=== PATIENT | female | born 1995 | race Caucasian/White ===

== ENCOUNTER 2019-04-09 23:50 | Emergency (ER) | payer MEDICAID ==
[~2019-04-09] VITALS: Ht 172.7 cm; Wt 69.9 kg
[~2019-04-09 23:50] MED LIST: PREN-153 OR; PREN-96 PO
[2019-04-10 00:33] LABS: Basophils # (auto) 0 uL; Basophils % (auto) 0.1 % (0.0-2.0); Eosinophils # (auto) 0.2 uL; Eosinophils % (auto) 1.8 % (0.0-7.0); Hematocrit 42.3 % (36.0-46.0); Hemoglobin 14.5 g/dL (12.2-16.2); Lymphocytes # (auto) 1.6 uL; Lymphocytes % (auto) 16.4 % (10.0-50.0); Mean Corpuscular Hemoglobin 32.5 pg (28.0-32.0); Mean Corpuscular Hgb Conc. 34.2 g/dL (32.0-36.0); Monocytes # (auto) 0.4 uL; Monocytes % (auto) 4.6 % (0.0-12.0); Neutrophils # (auto) 7.5 uL; Neutrophils % (auto) 77.1 % (37.0-80.0); Platelet Count (auto) 242 10^3/uL (140-450); Red Blood Cells 4.45 10^6/uL (4.0-5.20); Red Cell Distribution Width 13.1 % (11.8-14.3); White Blood Cell 9.7 10^3/uL (4.4-10.8)
[2019-04-10 00:51] LABS: Albumin 3.4 g/dL (3.4-5.0); BUN/Creatinine Ratio 4.8; Calcium 8.7 mg/dL (8.5-10.1); Potassium 3.7 mmol/L (3.5-5.1)
[2019-04-10 00:54] LABS: Bilirubin, Total 0.3 mg/dL (0.2-1.0)
[2019-04-10 03:04] LABS: Urine Amorphous Crystal FEW /hpf (None Seen); Urine Bacteria FEW /hpf (None Seen); Urine Blood 1+ /uL (Negative); Urine Hyaline Cast FEW /lpf (0 - 2); Urine Mucus FEW (None Seen); Urine Specific Gravity 1.028 (1.001-1.035); Urine WBC 4 /hpf (0 - 5)
[2019-04-10] MEDS ORDERED: cefTRIAXone 1GM/50ML D5W 50 ML IV ONE (04:30)
[2019-04-10] MEDS ORDERED: metroNIDAZOLE 500MG/100ML 100 ML IV ONE (04:30)
[2019-04-10] MEDS ORDERED: SODIUM CHLORIDE 0.9% 1,000 ML IV ONE (04:30)
[2019-04-10 06:30] VITALS: BP 90/51
== END 2019-04-10 06:30 | disposition home or self-care (01) ==
LOC: ER 23:54
DX: A08.4 Viral intestinal infection, unspecified (principal); E86.0 Dehydration; J45.909 Unspecified asthma, uncomplicated
CPT/HCPCS: 36415; 74176; 80053; 81001; 84702; 85025; 96365; 96367; 99284; J0696; J3490

== ENCOUNTER 2020-03-03 04:08 | Emergency (ER) | payer MEDICAID ==
[~2020-03-03] VITALS: Ht 172.7 cm; Wt 63.5 kg
[2020-03-03 08:31] VITALS: BP 110/53
== END 2020-03-03 09:35 | disposition home or self-care (01) ==
LOC: ER 04:08
DX: S39.012A Strain of muscle, fascia and tendon of lower back, initial encounter (principal); S46.812A Strain of other muscles, fascia and tendons at shoulder and upper arm level, left arm, initial encounter; J45.909 Unspecified asthma, uncomplicated; F17.210 Nicotine dependence, cigarettes, uncomplicated; Z88.6 Allergy status to analgesic agent; W01.0XXA Fall on same level from slipping, tripping and stumbling without subsequent striking against object, initial encounter; Y93.89 Activity, other specified; Y99.8 Other external cause status; Y92.009 Unspecified place in unspecified non-institutional (private) residence as the place of occurrence of the external cause
CPT/HCPCS: 70450; 71046; 71250; 72125; 73070; 74176